=== PATIENT | male | born 1995 | race Caucasian/White ===

== ENCOUNTER 2019-01-10 16:14 | Emergency (ER) | payer OTHER ==
[~2019-01-10] VITALS: Ht 167.6 cm; Wt 116.6 kg
[2019-01-10] MEDS ORDERED: HYDROCODONE-ACE15 M3 PO (17:07)
[2019-01-10] MEDS ORDERED: PENICILLIN250 MG/5 M PO (17:07)
== END 2019-01-10 17:25 | disposition home or self-care (01) ==
LOC: ED 16:14
DX: K04.7 Periapical abscess without sinus (principal)
CPT/HCPCS: 99282